=== PATIENT | male | born 1960 | race Caucasian/White ===

== ENCOUNTER 2022-02-06 01:20 | Day surgery (SDC) | payer OTHER, SELFPAY ==
[2022-01-15 12:40] VITALS: BMI 29.4
[2022-02-06 09:12] VITALS: BP 132/79; PULSE 52; RESP 16; TEMP 36.1; O2SAT 100
[2022-02-06 09:14] VITALS: BMI 29.9
[2022-02-06 09:26] LABS: Glucose Point of Care 116 mg/dl (65-105)
[2022-02-06] MEDS: LACTATED RINGERS 1,000 ML 150 ML IV CONT (09:26)
[2022-02-06] MEDS: GENTAMICIN 80MG/SOD CHL 50 ML 80 MG/50 ML BAG 100 MG IVPB (09:26)
--- NOTE | 2022-02-06 09:34 | WPDANESEPPF ---
Anes - Initial Pre Proc Eval Procedure: Operation Date: 02/06/22 10:00 Proposed Procedures p Screening Colonoscopy - Rahul Gonzalez MD Date/Time: 02/06/22 09:34 Surgeon: Rahul Gonzalez MD Pre Op Diagnosis: neoplasm screening Patient Data Age: 61 Gender: M Height: 1.78 m Weight: 94.8 kg Last Vital Signs Temp 97 F L 02/06/22 09:12 Pulse 52 L 02/06/22 09:12 Resp 16 02/06/22 09:12 BP 132/79 02/06/22 09:12 Pulse Ox 100 02/06/22 09:12 O2 Del Method Room Air 02/06/22 09:12 Allergies Allergy/AdvReac Type Severity Reaction Status Date / Time No Known Allergies Allergy Verified 02/06/22 09:11 Home Medications Medication Instructions Recorded Confirmed Type sodium sul 1.479 gram-potas ch See Rx Instructions PO PER PKG DIR 01/06/22 Rx 0.188 gram-magnes sul 0.225 gram #24 tabs tablet (Sutab) aspirin 81 mg tablet 81 mg PO DAILY 01/15/22 01/15/22 History cholecalciferol (vitamin D3) 125 125 mcg PO 2XW 01/15/22 01/15/22 History mcg (5,000 unit) tablet (Vitamin D3) ferrous sulfate 325 mg (65 mg 325 mg PO DAILY 01/15/22 01/15/22 History iron) tablet hydrochlorothiazide 12.5 mg capsule 12.5 mg PO DAILY 01/15/22 01/15/22 History insulin lispro 100 unit/mL See Rx Instructions .Route .COMPLEX 01/15/22 01/15/22 History subcutaneous solution (Humalog U-100 Insulin) magnesium 250 mg tablet 250 mg PO DAILY 01/15/22 01/15/22 History mecobalamin (vitamin B12) 1,000 1,000 mcg PO DAILY 01/15/22 01/15/22 History mcg chewable tablet multivitamin with minerals-folic 1 tablet PO DAILY 01/15/22 01/15/22 History acid 0.4 mg tablet psyllium husk 3.4 gram/5.4 gram 1 tbsp PO DAILY 01/15/22 01/15/22 History oral powder (Metamucil) quinapril 40 mg tablet 40 mg PO DAILY 01/15/22 01/15/22 History rosuvastatin 10 mg tablet 10 mg PO DAILY 01/15/22 01/15/22 History sertraline 100 mg tablet 100 mg PO DAILY 01/15/22 01/15/22 History Laboratory Tests 02/06/22 09:24 POC Capillary Glucose 116 mg/dl H mg/dl (65-105) Patient hx anesthesia problems: none Family hx anesthesia problems: none Results Review: All pre-operative results and documents have been reviewed as part of the pre-operative evaluation. [facility] Social History Social History Smoking status: Never smoker Alcohol intake: current Drinks per week: 14 Living arrangements: with family Spiritual care concerns: No Anes - Eval Final PreProcedure Day of Procedure 02/06/22 09:34 Patient weight: normal Heart: regular rate and rhythm Lungs: clear to auscultation Airway: Mallampati scale class II Neurological: alert and oriented Last oral intake: >/= 8 hours ASA classification: III Emergent: no Anesthetic plan: proceed Anesthesia type and monitoring: general GIVS and standard monitoring Results Review: All pre-operative results and documents have been reviewed as part of the pre-operative evaluation. Informed Consent: The patient's anesthetic plan and its attendant risks and benefits were discussed with the patient/family/POA. Questions were solicited and answers provided to the satisfaction of the patient/family/POA.
--- NOTE | 2022-02-06 09:47 | PM.HPGS ---
History of Present Illness History of Present Illness Consent: Risks, benefits, and alternatives have been discussed and questions answered. Patient agrees to proceed with procedure. Chief complaint: neoplasm screening Narrative: Homar Ledbetter is a 61 year old male referred for colon cancer screening. His last colonoscopy was 10 years ago Review of Systems Review of Systems: All systems reviewed & are unremarkable except as noted in HPI and below PMFSH Social History Social History Smoking status: Never smoker Alcohol intake: current Drinks per week: 14 Living arrangements: with family Spiritual care concerns: No Meds Home Medications and Allergies Home Medications Medication Instructions Recorded Confirmed Type sodium sul 1.479 gram-potas ch See Rx Instructions PO PER PKG DIR 01/06/22 Rx 0.188 gram-magnes sul 0.225 gram #24 tabs tablet (Sutab) aspirin 81 mg tablet 81 mg PO DAILY 01/15/22 01/15/22 History cholecalciferol (vitamin D3) 125 125 mcg PO 2XW 01/15/22 01/15/22 History mcg (5,000 unit) tablet (Vitamin D3) ferrous sulfate 325 mg (65 mg 325 mg PO DAILY 01/15/22 01/15/22 History iron) tablet hydrochlorothiazide 12.5 mg capsule 12.5 mg PO DAILY 01/15/22 01/15/22 History insulin lispro 100 unit/mL See Rx Instructions .Route .COMPLEX 01/15/22 01/15/22 History subcutaneous solution (Humalog U-100 Insulin) magnesium 250 mg tablet 250 mg PO DAILY 01/15/22 01/15/22 History mecobalamin (vitamin B12) 1,000 1,000 mcg PO DAILY 01/15/22 01/15/22 History mcg chewable tablet multivitamin with minerals-folic 1 tablet PO DAILY 01/15/22 01/15/22 History acid 0.4 mg tablet psyllium husk 3.4 gram/5.4 gram 1 tbsp PO DAILY 01/15/22 01/15/22 History oral powder (Metamucil) quinapril 40 mg tablet 40 mg PO DAILY 01/15/22 01/15/22 History rosuvastatin 10 mg tablet 10 mg PO DAILY 01/15/22 01/15/22 History sertraline 100 mg tablet 100 mg PO DAILY 01/15/22 01/15/22 History Allergies Allergy/AdvReac Type Severity Reaction Status Date / Time No Known Allergies Allergy Verified 02/06/22 09:11 Vital Signs Vital Signs - 24 hr 02/06/22 09:12 Temperature 36.1 C L Pulse Rate 52 L Respiratory Rate 16 Blood Pressure 132/79 Pulse Oximetry 100 Oxygen Delivery Room Air Exam Resp: Auscultation: clear to auscultation bilaterally Cardio: Rate: regular rate Rhythm: regular rhythm GI: GI Palp: Yes Soft to palpation and No Tenderness to palpation present (GI) Assessment and Plan Assessment and plan (1) Colon cancer screening: Code(s): Z12.11 - Encounter for screening for malignant neoplasm of colon Status: Acute Assessment and Plan: Colonoscopy with possible biopsy or polypectomy or cautery or injection of substances.
[2022-02-06] MEDS: AMPICILLIN 2 GM/NS 100 ML 2 GM/100 ML BAG IVPB (09:53)
[2022-02-06 10:11] VITALS: BP 103/64; PULSE 62; RESP 16; O2SAT 95
[2022-02-06 10:20] LABS: Glucose Point of Care 114 mg/dl (65-105)
[2022-02-06 10:21] VITALS: BP 117/78; PULSE 56; RESP 19; O2SAT 100
== END 2022-02-06 10:42 | disposition home or self-care (01) ==
PROVIDERS: PCP Internal Medicine; Visit Provider Internal Medicine Gastroenterology
PROC: 0DJD8ZZ Inspection of Lower Intestinal Tract, Via Natural or Artificial Opening Endoscopic (ICD-10-PCS; CPT 45378; principal; 2022-02-06 10:00)
DX: Z12.11 Encounter for screening for malignant neoplasm of colon (principal); Z79.4 Long term (current) use of insulin; Z79.82 Long term (current) use of aspirin
CPT/HCPCS: 45378; 82948; J0290; J1580; J2704; J7120